=== PATIENT | female | born 1945 | race Caucasian/White ===

== ENCOUNTER 2017-08-23 15:46 | Inpatient (IN) | payer MEDICARE, MEDICAID ==
--- NOTE | 2017-08-23 16:33 | ED Physician Chart ---
ED Chief Complaint/HPI - Patient Information Date Seen:: 08/23/17 Time Seen:: 16:25 Chief Complaint:: increased agitation and refusing medications History of Present Illness:: Patient sent from her longterm facility for increased agitation and refusing medications. Patient states she fell backwards 40 years ago after which she was in a coma for 4 months. Historian:: Patient, EMS Review:: Nurse's Note Reviewed, Transfer documents Reviewed ED Review of Systems - Review of Systems General/Constitutional: No fever, No chills Skin: No skin lesions Head: No headache Eyes: No loss of vision ENT: No earache Neck: No neck pain Cardio Vascular: No chest pain, No palpitations Pulmonary: No SOB GI: No nausea, No vomiting G/U: No dysuria Musculoskeletal: No bone or joint pain Endocrine: No polyuria Psychiatric: Prior psych history Hematopoietic: No bruising Allergic/Immuno: No urticaria Neurological: No syncope ED Past Medical History - Past Medical History Past Medical History: HTN, DM, Seizures, Arthritis, Other (peripheral vascular disease; dysphagia; anemia; seizure disorder; hyperlipidemia; encephalopathy) Family History: Other (unavailable) Social History: Care Facility Surgical History: PEG/GTube, other (tracheotomy) Psychiatricy History: Other (encephalopathy) Medication: Reviewed Family Medical History - Family Member Mother History Unknown: Yes ED Physical Exam - Physical Examination General/Constitutional: Well-developed, well-nourished, Alert Other Gen/Cons comments:: Patient is confused. She does not know the year. Head: Atraumatic Eyes: Lids, conjuctiva normal, PERRL Skin: Nl inspection ENMT: External ears, nose nl, TM canals nl, Nasal exam nl, Lips, teeth, gums nl Neck: No nuchal rigidity Respiratory: Nl effort/Exclusion, Clear to Auscultation Cardio Vascular: RRR Other Cardio Vascular comments:: Heart sounds faint GI: No tenderness/rebounding/guarding, No organomegaly Extremities: Normal digits & nails Neuro/Psych: No focal deficits Misc: No paraspinal tenderness ED Labs/Radiology/EKG Results - Lab Results Results: Laboratory Results - last 24 hr 08/23/17 08/23/17 16:41 16:41 WBC 6.8 RBC 4.32 Hgb 13.5 Hct 39.6 L MCV 91.8 MCH 31.2 H MCHC Differential 34.0 RDW 13.3 Plt Count 216 MPV 9.7 Neutrophils % 52.8 Lymphocytes % 39.0 Monocytes % 5.8 Eosinophils % 1.6 Basophils % 0.8 Sodium 140 Potassium 4.3 Chloride 108 H Carbon Dioxide 24.6 Anion Gap 11.7 BUN 14 Creatinine 0.6 Est GFR ( Amer) TNP Est GFR (Non-Af Amer) TNP BUN/Creatinine Ratio 23.3 Glucose 161 H Calcium 9.6 Total Bilirubin 0.3 AST 9 L ALT 12 Alkaline Phosphatase 53 Total Protein 5.9 L Albumin 3.7 Globulin 2.2 Albumin/Globulin Ratio 1.7 Triglycerides 191 H Cholesterol 126 LDL Cholesterol Direct 67 L HDL Cholesterol 37 - EKG Interpretations Rate & Rhythm: normal sinus rhythm Brant: right axis deviation Comments:: Right bundle-branch block ED Septic Shock - . Is Septic Shock (SBP<90, OR Lactate>4 mmol\L) present?: No ED Reassessment (Disposition) - Reassessment Reassessment Condition:: Unchanged - Diagnosis Diagnosis:: Dementia with agitation - Patient Disposition Admitted to:: [facility] Admitting Medical Physician:: David Ellison Admitting Psych Physician:: Warren Quach
[2017-08-23 16:47] LABS: % BASOPHILS 0.8 % (0.0-2.0); % EOSINOPHILS 1.6 % (0.0-5.0); % MONOCYTES 5.8 % (2.0-10.0); % NEUTROPHILS 52.8 % (40.0-80.0); BASOPHILE ABSOLUTE 0.1 Th/cumm (0-0.2); EOSINOPHILE ABSOLUTE 0.1 Th/cmm (0.1-0.4); HEMATOCRIT 39.6 % (41.0-60); HEMOGLOBIN 13.5 gm/dL (12-16); LYMPHOCYTE ABSOLUTE 2.7 Th/cmm (1.5-3.0); MEAN CELL VOLUME 91.8 fl (81-100); MEAN CORPUSCULAR HEMOGLOBIN 31.2 pg (27.0-31.0); MEAN PLATELET VOLUME 9.7 fl; MONOCYTE ABSOLUTE 0.4 Th/cmm (0.3-1.0); NEUTROPHILE ABSOLUTE 3.5 Th/cmm (1.8-8.0); PLATELET COUNT 216 Th/cmm (150-400); RED BLOOD COUNT 4.32 Mil/cmm (3.80-5.20); RED CELL DISTRIBUTION WIDTH 13.3 % (11.5-20.0); WHITE BLOOD COUNT 6.8 Th/cmm (4.8-10.8)
[2017-08-23 17:05] LABS: ALB/GLOB RATIO 1.7 (1.0-1.8); ALBUMIN 3.7 gm/dL (3.7-5.3); ALKALINE PHOSPHATASE 53 U/L (34-104); ANION GAP 11.7 (7.0-16.0); BILIRUBIN,TOTAL 0.3 mg/dL (0.3-1.0); BUN - UREA NITROGEN 14 mg/dL (7-25); CALCIUM SERUM 9.6 mg/dL (8.6-10.3); CARBON DIOXIDE 24.6 mEq/L (21.0-31.0); CHLORIDE 108 mEq/L (98-107); CHOLESTEROL 126 mg/dL (<200); CREATININE - SERUM 0.6 mg/dL (0.6-1.2); GLUCOSE 161 mg/dL (70-105); HDL -HIGH DENSITY LIPOPROTEIN 37 mg/dL (23-92); POTASSIUM SERUM 4.3 mEq/L (3.5-5.1); SGOT 9 U/L (13-39); SGPT/ALT 12 U/L (7-52); SODIUM SERUM 140 mEq/L (136-145); TOTAL PROTEIN,SERUM 5.9 gm/dL (6.0-8.3); TRIGLYCERIDES 191 mg/dL (<150)
[2017-08-23 17:10] LABS: URINE MICROSCOPIC INDICATED? YES; URINE SOURCE CLEAN C
[2017-08-23 17:13] LABS: URINE BILIRUBIN NEGATIVE (NEGATIVE); URINE BLOOD NEGATIVE (NEGATIVE); URINE GLUCOSE (UA) NEGATIVE (NEGATIVE); URINE KETONE TRACE mg/dL (NEGATIVE); URINE LEUKOCYTE ESTERASE TRACE (NEGATIVE); URINE NITRATE NEGATIVE (NEGATIVE); URINE PROTEIN NEGATIVE (NEGATIVE); URINE UROBILINOGEN 0.2 E.U./dL (0.2 - 1.0)
[2017-08-23 17:17] LABS: URINE CLARITY HAZY (CLEAR); URINE COLOR YELLOW
[2017-08-23 17:20] LABS: URINE BACTERIA 1+ /hpf (NONE SEEN); URINE EPITHELIAL CELLS MANY /lpf (FEW)
[2017-08-23] MEDS: Levetiracetam 500 mg/5mL 5mL UDC GT SCH (20:50)
[2017-08-23] MEDS: Insulin Detemir 100 units/mL 10mL Vial SUBQ SCH (21:05)
--- NOTE | 2017-08-24 09:32 | Psychosocial Evaluation ---
DATE OF SERVICE: PATIENT'S AGE: 72. SEX: Female. PHYSICIAN: Warren Quach M.D., M.P.H. CHIEF COMPLAINT: Agitation and irritability. HISTORY OF PRESENT ILLNESS: The patient is a 72-year-old female with history of dementia. The patient has been agitated and confused and has not been able to follow directions. The patient also has been irritable and has been in angry mood. She also has been easily agitated with the staff and she also was aggressive with the staff when staff was trying to help her with her ADLs. She also has been refusing medications for no apparent reason. The patient also tried ____ at the staff. On the other hand, the patient seems to be depressed and sad affect. PAST PSYCHIATRIC HISTORY: The patient has history of dementia and the patient has been taking Namenda. PAST MEDICAL HISTORY: The patient has insulin-dependent diabetes mellitus and history of seizure disorder. The patient is taking Keppra and insulin and metformin. SOCIAL HISTORY: No known alcohol or street drug use. She has supportive son. ALLERGIES: No known allergies. MENTAL STATUS EXAM: The patient appears slightly older than her stated age. Anxious. Confused and forgetful. Thought processes are circumstantial with occasional flight of ideas. The patient denies any auditory or visual hallucinations, but seems to be preoccupied and responding to stimuli. The patient denies suicidal or homicidal ideations. The patient is alert, but seems to be confused to time, place, person and situation. Impaired immediate and recent memory, but intact remote memory and she did remember her date. Poor insight. Poor judgment. ASSESSMENT: PRIMARY DIAGNOSIS: Unspecified psychosis. SECONDARY DIAGNOSIS: Dementia, moderate to severe. TREATMENT PLAN: We will continue to monitor her behavior and her condition closely. Also, we will start a small dose of Seroquel before bedtime. Also, we will monitor her behavior closely. ESTIMATED LENGTH OF STAY: 5-7 days. THE PATIENT'S STRENGTHS AND WEAKNESSES: The patient's strength is not clear at this time. Weaknesses is ineffective coping and her agitation. AFTER DISCHARGE PLAN: Outpatient treatment and followup will continue as an outpatient. PSYCHIATRIC# [id number]
[2017-08-24] MEDS: Levetiracetam 500 mg/5mL 5mL UDC GT SCH ×3 (10:16→21:43)
--- NOTE | 2017-08-24 18:41 | History and Physical ---
History of Present Illness - HPI Chief Complaint: agitation HPI: This is a 72 yr old female senior living resident admitted to the [facility] due to agitation towards nursing staff Vital Signs: Last Vital Signs Temp 97.8 F 08/24/17 14:00 Pulse 97 08/24/17 17:39 Resp 20 08/24/17 14:00 BP 156/90 08/24/17 17:39 Pulse Ox 97 08/24/17 14:00 Past Medical History Other History: HTN, DM, Seizures, Arthritis, peripheral vascular disease, dysphagia anemia, seizure disorder; hyperlipidemia; encephalopathy Family Medical History - Family Member Mother History Unknown: Yes Social History Smoke: No Alcohol: None Drugs: None Lives: [facility] - Medications Home Medications: Home Medication Medication Instructions Recorded Type Acetaminophen [Tylenol 650 mg GT Q6HR PRN 08/23/17 History 650mg/20.3mL Suspension] Acetaminophen [Tylenol 650 mg GT Q6HR PRN 08/23/17 History 650mg/20.3mL Suspension] Atorvastatin Calcium [Lipitor] 10 mg GT HS 08/23/17 History Carvedilol [Coreg] 3.125 mg GT BID 08/23/17 History Docusate Sodium [Colace] 200 mg GT DAILY 08/23/17 History Insulin Glargine,Hum.rec.anlog 30 unit SUBQ HS 08/23/17 History [Lantus Solostar] Levetiracetam [Keppra] 1,000 mg GT TID 08/23/17 History Memantine [Namenda] 10 mg GT BID 08/23/17 History metFORMIN [Glucophage] 1,000 mg GT BID 08/23/17 History - Allergies Allergies/Adverse Reactions: Allergies Allergy/AdvReac Type Severity Reaction Status Date / Time Penicillins Allergy Verified 08/23/17 16:30 tetracycline Allergy Verified 08/23/17 16:30 Review of Systems - Review of Systems Constitutional: Report: No Significant Eyes: Report: No Significant ENT: Report: No Significant Respiratory: Report: No Significant Cardiovascular: Report: No Significant Gastrointestinal: Report: No Significant Genitourinary: Report: No Significant Musculoskeletal: Report: No Significant Skin: Report: No Significant Neurological: Report: No Significant Physical Exam - Physical Exam HEENT: Report: Ears Nose Throat within normal limits. Denies: Pale Conjunctiva Neck: Report: Within normal limits Cardiovascular Systems: Report: +s1/s2 noted Respiratory: Report: Breath Sounds are within normal limits Abdomen: Report: Non-tender to palpation Back: Report: Inspection of back is within normal limits. Extremities: Report: Non-tender to palpation. Skin: Report: Color of skin is within normal limits Neuro/Psych: Report: Mood affect is within normal limits - Lab Results All Lab Results last 24 hours: Laboratory Results - last 24 hr 08/24/17 16:36 POC Glucose 81 - Assessment Assessment: HTN, DM, Seizures, Arthritis, peripheral vascular disease; dysphagia; anemia; hyperlipidemia - Plan Plan: safety precautions seizure precautions continue current tx
[2017-08-24] MEDS: INSULIN ASPART SLIDING SCALE 100 UNITS/ML UNIT SUBQ SCH (21:44)
[2017-08-24] MEDS: Insulin Detemir 100 units/mL 10mL Vial SUBQ SCH (21:44)
[2017-08-25] MEDS: INSULIN ASPART SLIDING SCALE 100 UNITS/ML UNIT SUBQ SCH ×4 (06:44→23:50)
--- NOTE | 2017-08-25 07:52 | Progress Notes ---
DATE: 08/25/2017 SUBJECTIVE: The patient under the care of Dr. Quach, seen today, 08/25/2017. The patient with history of dementia, agitation, confusional episodes, irritable, angry mood. Needs help with ADLs. The patient is refusing to speak with me this morning, does not want to engage during memory exam. Staff noting continued and ongoing symptoms, remains irritable, impulsive, unpredictable, needing a lot of redirection, prompting, noted to be confused, preoccupied. MEDICATIONS: Reviewed including dosages and frequencies. ASSESSMENT: The patient remains symptomatic, demented, confused, impulsive. PLAN: We will continue to monitor and follow up. Recent dose adjustment of Seroquel was made. She is currently on Seroquel 12.5 mg at bedtime. [facility]# [id number]
[2017-08-25] MEDS: Levetiracetam 500 mg/5mL 5mL UDC GT SCH ×3 (10:14→21:30)
[2017-08-25] MEDS: Insulin Detemir 100 units/mL 10mL Vial SUBQ SCH (23:50)
--- NOTE | 2017-08-26 00:40 | Progress Notes ---
DATE: 08/25/2017 SUBJECTIVE: The patient was seen in her room lying on the bed. The patient is asleep, but easily arousable. The patient is a poor historian due to medical condition. Otherwise, the patient appears to be comfortable in no acute distress. OBJECTIVE: VITAL SIGNS: Temperature of 98.6, heart rate of 89, blood pressure of 134/78, respirations of 18, 96% on room air. HEENT: Head is atraumatic and normocephalic. Eyes, bilateral conjunctivae are clear. Bilateral pupils are equally round and reactive. NECK: Supple. No JVD. CARDIOVASCULAR: S1 and S2, without murmur. PULMONARY: Clear to auscultation. GASTROINTESTINAL: Soft and nontender without guarding. Positive bowel sounds. MUSCULOSKELETAL: No clubbing, no cyanosis noted. ASSESSMENT: 1. Dementia. 2. Diabetes mellitus. 3. Seizure disorder. 4. Osteoarthritis. 5. Peripheral vascular disease. 6. Anemia. 7. Hyperlipidemia. PLAN: We will continue to keep the patient inpatient in Psychiatric Unit. We will follow up with a psychiatrist to monitor the patient's condition and behavior. Treatment plans were discussed with the patient's nurse. Treatment plans were discussed with Dr. Ellison. JOB# [id number]
[2017-08-26] MEDS: INSULIN ASPART SLIDING SCALE 100 UNITS/ML UNIT SUBQ SCH ×3 (06:34→21:37)
--- NOTE | 2017-08-26 08:14 | Progress Notes ---
DATE: 08/26/2017 SUBJECTIVE: The patient is seen on 08/26/2017, agitated, confusion, irritable, angry mood, aggressive towards staff, refusing medications at long term. On [id number], the patient is essentially refusing to speak with me, seemingly confused, awake and alert, but noted to still be somewhat irritable, angry at times, needing help with ADLs, continued confusion and disorientation, impulsive and unpredictable. MEDICATIONS: Reviewed including doses and frequencies. ASSESSMENT: The patient remains symptomatic, still confused, impulsive. PLAN: We will continue to monitor and follow up. The patient does seem to be somewhat calmer with current dose of medications, no side effects noted, no over sedation, no EPS. [facility]# [id number]
--- NOTE | 2017-08-26 09:13 | General Progress Note ---
Subjective - Review of Systems Events since last encounter: patient still confused Objective - Results Result Diagrams: 08/23/17 16:41 08/23/17 16:41 Recent Labs: Laboratory Last Values WBC 6.8 Th/cmm (4.8-10.8) 08/23/17 16:41 RBC 4.32 Mil/cmm (3.80-5.20) 08/23/17 16:41 Hgb 13.5 gm/dL (12-16) 08/23/17 16:41 Hct 39.6 % (41.0-60) L 08/23/17 16:41 MCV 91.8 fl (81-100) 08/23/17 16:41 MCH 31.2 pg (27.0-31.0) H 08/23/17 16:41 MCHC Differential 34.0 pg (28.0-36.0) 08/23/17 16:41 RDW 13.3 % (11.5-20.0) 08/23/17 16:41 Plt Count 216 Th/cmm (150-400) 08/23/17 16:41 MPV 9.7 fl 08/23/17 16:41 Neutrophils % 52.8 % (40.0-80.0) 08/23/17 16:41 Lymphocytes % 39.0 % (20.0-50.0) 08/23/17 16:41 Monocytes % 5.8 % (2.0-10.0) 08/23/17 16:41 Eosinophils % 1.6 % (0.0-5.0) 08/23/17 16:41 Basophils % 0.8 % (0.0-2.0) 08/23/17 16:41 Sodium 140 mEq/L (136-145) 08/23/17 16:41 Potassium 4.3 mEq/L (3.5-5.1) 08/23/17 16:41 Chloride 108 mEq/L (98-107) H 08/23/17 16:41 Carbon Dioxide 24.6 mEq/L (21.0-31.0) 08/23/17 16:41 Anion Gap 11.7 (7.0-16.0) 08/23/17 16:41 BUN 14 mg/dL (7-25) 08/23/17 16:41 Creatinine 0.6 mg/dL (0.6-1.2) 08/23/17 16:41 Est GFR ( Amer) TNP 08/23/17 16:41 Est GFR (Non-Af Amer) TNP 08/23/17 16:41 BUN/Creatinine Ratio 23.3 08/23/17 16:41 Glucose 161 mg/dL (70-105) H 08/23/17 16:41 POC Glucose 101 MG/DL (70 - 105) 08/26/17 06:12 Calcium 9.6 mg/dL (8.6-10.3) 08/23/17 16:41 Total Bilirubin 0.3 mg/dL (0.3-1.0) 08/23/17 16:41 AST 9 U/L (13-39) L 08/23/17 16:41 ALT 12 U/L (7-52) 08/23/17 16:41 Alkaline Phosphatase 53 U/L (34-104) 08/23/17 16:41 Total Protein 5.9 gm/dL (6.0-8.3) L 08/23/17 16:41 Albumin 3.7 gm/dL (3.7-5.3) 08/23/17 16:41 Globulin 2.2 gm/dL 08/23/17 16:41 Albumin/Globulin Ratio 1.7 (1.0-1.8) 08/23/17 16:41 Triglycerides 191 mg/dL (<150) H 08/23/17 16:41 Cholesterol 126 mg/dL (<200) 08/23/17 16:41 LDL Cholesterol Direct 67 mg/dL (75-193) L 08/23/17 16:41 HDL Cholesterol 37 mg/dL (23-92) 08/23/17 16:41 TSH 0.25 uIU/ml (0.34-5.60) L 08/23/17 16:41 Urine Source CLEAN C 08/23/17 17:00 Urine Color YELLOW 08/23/17 17:00 Urine Clarity HAZY (CLEAR) 08/23/17 17:00 Urine pH 6.0 (4.6 - 8.0) 08/23/17 17:00 Ur Specific [place] 1.025 (1.005-1.030) 08/23/17 17:00 Urine Protein NEGATIVE mg/dL (NEGATIVE) 08/23/17 17:00 Urine Glucose (UA) NEGATIVE mg/dL (NEGATIVE) 08/23/17 17:00 Urine Ketones TRACE mg/dL (NEGATIVE) 08/23/17 17:00 Urine Blood NEGATIVE (NEGATIVE) 08/23/17 17:00 Urine Nitrate NEGATIVE (NEGATIVE) 08/23/17 17:00 Urine Bilirubin NEGATIVE (NEGATIVE) 08/23/17 17:00 Urine Urobilinogen 0.2 E.U./dL (0.2 - 1.0) 08/23/17 17:00 Ur Leukocyte Esterase TRACE (NEGATIVE) H 08/23/17 17:00 Urine RBC 2-5 /hpf (0-5) 08/23/17 17:00 Urine WBC 6-10 /hpf (0-5) H 08/23/17 17:00 Ur Epithelial Cells MANY /lpf (FEW) 08/23/17 17:00 Urine Bacteria 1+ /hpf (NONE SEEN) H 08/23/17 17:00 RPR NONREACTIVE (NONREACTIVE) 08/23/17 16:41 - Physical Exam Vitals and I&O: Vital Signs Temp 98.2 F 08/26/17 06:25 Pulse 79 08/26/17 08:51 Resp 20 08/26/17 06:25 BP 136/76 08/26/17 08:51 Pulse Ox 97 08/26/17 06:25 Intake & Output 08/25/17 08/26/17 08/26/17 18:59 06:59 18:59 Intake Total 300 360 Balance 300 360 Intake: Oral 300 360 Other: # Voids 2 1 Active Medications: Current Medications Acetaminophen (Tylenol 650mg/20.3ml Suspension) 650 mg GT Q6HR PRN PRN Reason: Pain (Mild) Stop: 10/22/17 18:49 Acetaminophen (Tylenol 650mg/20.3ml Suspension) 650 mg GT Q6HR PRN PRN Reason: Fever > 101 Stop: 10/22/17 18:49 Carvedilol (Coreg) 3.125 mg GT BID [facility] Stop: 10/23/17 08:59 Last Admin: 08/26/17 08:51 Dose: 3.125 mg Docusate Sodium (Colace) 200 mg PO DAILY [facility] Stop: 10/23/17 08:59 Last Admin: 08/26/17 08:52 Dose: 200 mg Insulin Aspart (Novolog Insulin Sliding Scale) 100 units SUBQ ACHS BELLA PRN Reason: Protocol Stop: 10/23/17 21:08 Last Admin: 08/26/17 06:34 Dose: Not Given Insulin Detemir (Levemir Insulin) 30 units SUBQ HS [facility] Stop: 10/22/17 20:59 Last Admin: 08/25/17 23:50 Dose: Not Given Levetiracetam (Keppra) 1,000 mg GT TID [facility] Stop: 10/22/17 20:59 Last Admin: 08/25/17 21:30 Dose: 1,000 mg Memantine (Namenda) 10 mg GT BID [facility] Stop: 10/23/17 08:59 Last Admin: 08/26/17 08:52 Dose: 10 mg Metformin HCl (Glucophage) 1,000 mg GT BID [facility] Stop: 10/23/17 08:59 Last Admin: 08/26/17 08:51 Dose: 1,000 mg Quetiapine Fumarate (Seroquel) 12.5 mg PO HS [facility]LLA PRN Reason: Protocol Stop: 10/23/17 20:59 Last Admin: 08/25/17 21:30 Dose: 12.5 mg Simvastatin (Zocor) 10 mg GT HS BELLA PRN Reason: Protocol Stop: 10/22/17 20:59 Last Admin: 08/24/17 21:43 Dose: Not Given General: No acute distress HEENT: Atraumatic Neck: Supple Assessment/Plan - Plan Plan: cpm
[2017-08-26] MEDS: Levetiracetam 500 mg/5mL 5mL UDC GT SCH ×2 (10:24→14:37)
[2017-08-26] MEDS: Insulin Detemir 100 units/mL 10mL Vial SUBQ SCH (21:36)
[2017-08-27] MEDS: Levetiracetam 500 mg/5mL 5mL UDC GT SCH ×4 (00:21→20:45)
[2017-08-27] MEDS: INSULIN ASPART SLIDING SCALE 100 UNITS/ML UNIT SUBQ SCH ×4 (06:56→20:43)
--- NOTE | 2017-08-27 10:48 | General Progress Note ---
Subjective - Review of Systems Events since last encounter: continues to be confused Objective - Results Result Diagrams: 08/23/17 16:41 08/23/17 16:41 Recent Labs: Laboratory Last Values WBC 6.8 Th/cmm (4.8-10.8) 08/23/17 16:41 RBC 4.32 Mil/cmm (3.80-5.20) 08/23/17 16:41 Hgb 13.5 gm/dL (12-16) 08/23/17 16:41 Hct 39.6 % (41.0-60) L 08/23/17 16:41 MCV 91.8 fl (81-100) 08/23/17 16:41 MCH 31.2 pg (27.0-31.0) H 08/23/17 16:41 MCHC Differential 34.0 pg (28.0-36.0) 08/23/17 16:41 RDW 13.3 % (11.5-20.0) 08/23/17 16:41 Plt Count 216 Th/cmm (150-400) 08/23/17 16:41 MPV 9.7 fl 08/23/17 16:41 Neutrophils % 52.8 % (40.0-80.0) 08/23/17 16:41 Lymphocytes % 39.0 % (20.0-50.0) 08/23/17 16:41 Monocytes % 5.8 % (2.0-10.0) 08/23/17 16:41 Eosinophils % 1.6 % (0.0-5.0) 08/23/17 16:41 Basophils % 0.8 % (0.0-2.0) 08/23/17 16:41 Sodium 140 mEq/L (136-145) 08/23/17 16:41 Potassium 4.3 mEq/L (3.5-5.1) 08/23/17 16:41 Chloride 108 mEq/L (98-107) H 08/23/17 16:41 Carbon Dioxide 24.6 mEq/L (21.0-31.0) 08/23/17 16:41 Anion Gap 11.7 (7.0-16.0) 08/23/17 16:41 BUN 14 mg/dL (7-25) 08/23/17 16:41 Creatinine 0.6 mg/dL (0.6-1.2) 08/23/17 16:41 Est GFR ( Amer) TNP 08/23/17 16:41 Est GFR (Non-Af Amer) TNP 08/23/17 16:41 BUN/Creatinine Ratio 23.3 08/23/17 16:41 Glucose 161 mg/dL (70-105) H 08/23/17 16:41 POC Glucose 123 MG/DL (70 - 105) H 08/27/17 06:46 Calcium 9.6 mg/dL (8.6-10.3) 08/23/17 16:41 Total Bilirubin 0.3 mg/dL (0.3-1.0) 08/23/17 16:41 AST 9 U/L (13-39) L 08/23/17 16:41 ALT 12 U/L (7-52) 08/23/17 16:41 Alkaline Phosphatase 53 U/L (34-104) 08/23/17 16:41 Total Protein 5.9 gm/dL (6.0-8.3) L 08/23/17 16:41 Albumin 3.7 gm/dL (3.7-5.3) 08/23/17 16:41 Globulin 2.2 gm/dL 08/23/17 16:41 Albumin/Globulin Ratio 1.7 (1.0-1.8) 08/23/17 16:41 Triglycerides 191 mg/dL (<150) H 08/23/17 16:41 Cholesterol 126 mg/dL (<200) 08/23/17 16:41 LDL Cholesterol Direct 67 mg/dL (75-193) L 08/23/17 16:41 HDL Cholesterol 37 mg/dL (23-92) 08/23/17 16:41 TSH 0.25 uIU/ml (0.34-5.60) L 08/23/17 16:41 Urine Source CLEAN C 08/23/17 17:00 Urine Color YELLOW 08/23/17 17:00 Urine Clarity HAZY (CLEAR) 08/23/17 17:00 Urine pH 6.0 (4.6 - 8.0) 08/23/17 17:00 Ur Specific [place] 1.025 (1.005-1.030) 08/23/17 17:00 Urine Protein NEGATIVE mg/dL (NEGATIVE) 08/23/17 17:00 Urine Glucose (UA) NEGATIVE mg/dL (NEGATIVE) 08/23/17 17:00 Urine Ketones TRACE mg/dL (NEGATIVE) 08/23/17 17:00 Urine Blood NEGATIVE (NEGATIVE) 08/23/17 17:00 Urine Nitrate NEGATIVE (NEGATIVE) 08/23/17 17:00 Urine Bilirubin NEGATIVE (NEGATIVE) 08/23/17 17:00 Urine Urobilinogen 0.2 E.U./dL (0.2 - 1.0) 08/23/17 17:00 Ur Leukocyte Esterase TRACE (NEGATIVE) H 08/23/17 17:00 Urine RBC 2-5 /hpf (0-5) 08/23/17 17:00 Urine WBC 6-10 /hpf (0-5) H 08/23/17 17:00 Ur Epithelial Cells MANY /lpf (FEW) 08/23/17 17:00 Urine Bacteria 1+ /hpf (NONE SEEN) H 08/23/17 17:00 RPR NONREACTIVE (NONREACTIVE) 08/23/17 16:41 - Physical Exam Vitals and I&O: Vital Signs Temp 98.2 F 08/26/17 20:55 Pulse 75 08/27/17 09:59 Resp 20 08/26/17 20:55 BP 140/65 08/27/17 09:59 Pulse Ox 96 08/26/17 20:55 Intake & Output 08/26/17 08/27/17 08/27/17 18:59 06:59 18:59 Intake Total 750 240 Balance 750 240 Intake: Oral 750 240 Other: # Voids 4 1 # Bowel Movements 1 Active Medications: Current Medications Acetaminophen (Tylenol 650mg/20.3ml Suspension) 650 mg GT Q6HR PRN PRN Reason: Pain (Mild) Stop: 10/22/17 18:49 Acetaminophen (Tylenol 650mg/20.3ml Suspension) 650 mg GT Q6HR PRN PRN Reason: Fever > 101 Stop: 10/22/17 18:49 Carvedilol (Coreg) 3.125 mg GT BID [facility] Stop: 10/23/17 08:59 Last Admin: 08/27/17 09:59 Dose: 3.125 mg Docusate Sodium (Colace) 200 mg PO DAILY [facility] Stop: 10/23/17 08:59 Last Admin: 08/27/17 09:57 Dose: 200 mg Insulin Aspart (Novolog Insulin Sliding Scale) 100 units SUBQ ACHS [facility] PRN Reason: Protocol Stop: 10/23/17 21:08 Last Admin: 08/27/17 06:56 Dose: Not Given Insulin Detemir (Levemir Insulin) 30 units SUBQ HS [facility] Stop: 10/22/17 20:59 Last Admin: 08/26/17 21:36 Dose: Not Given Levetiracetam (Keppra) 1,000 mg GT TID [facility] Stop: 10/22/17 20:59 Last Admin: 08/27/17 09:57 Dose: 1,000 mg Memantine (Namenda) 10 mg GT BID [facility] Stop: 10/23/17 08:59 Last Admin: 08/27/17 09:57 Dose: 10 mg Metformin HCl (Glucophage) 1,000 mg GT BID [facility] Stop: 10/23/17 08:59 Last Admin: 08/27/17 10:31 Dose: 1,000 mg Quetiapine Fumarate (Seroquel) 12.5 mg PO HS [facility] PRN Reason: Protocol Stop: 10/23/17 20:59 Last Admin: 08/26/17 21:36 Dose: 12.5 mg Simvastatin (Zocor) 10 mg GT HS [facility] PRN Reason: Protocol Stop: 10/22/17 20:59 Last Admin: 08/26/17 21:36 Dose: 10 mg General: No acute distress HEENT: Atraumatic Neck: Supple Assessment/Plan - Plan Plan: cpm
--- NOTE | 2017-08-27 15:58 | Progress Notes ---
DATE: SUBJECTIVE: The patient was seen and evaluated. The patient's chart reviewed. Overnight, nursing staff reported the patient has mostly been isolated. Overnight, she becomes easily irritable, easily agitated. She initially came in here after becoming aggressive towards the staff in the skilled nursing and had been refusing medications. Today on [id number] evaluation, the patient reports that she is not the person who we say she is, easily irritable, easily agitated, refusing to talk. MENTAL STATUS EXAMINATION: Disorganized, disheveled, poor impulse control and delusional. ASSESSMENT AND PLAN: The patient is still disorganized, disheveled, has been refusing medications, unable to engage in linear conversation. We will continue with primary psychiatrist's treatment plan and goals, which include Keppra 1000 mg t.i.d., memantine at 10 mg b.i.d., Seroquel at 12.5 at bedtime. We will continue observing and monitoring and titrate medications as tolerated to minimize the risk of any increased risk of side effects and oversedation. [facility]# [id number]
[2017-08-27] MEDS: Insulin Detemir 100 units/mL 10mL Vial SUBQ SCH (20:43)
[2017-08-28] MEDS: INSULIN ASPART SLIDING SCALE 100 UNITS/ML UNIT SUBQ SCH ×4 (06:31→21:32)
--- NOTE | 2017-08-28 08:18 | Progress Notes ---
DATE: PSYCHIATRIC PROGRESS NOTE Chart reviewed and patient interviewed. Also discussed the patient's condition with the staff and reviewed the records and labs. The patient remains confused and agitated. The patient also is still selectively mute and she is still paranoid and suspicious. The patient also still has episodes of yelling and screaming. She also is still forgetful and unable to follow directions easily. Otherwise, the patient is compliant with taking her medications with no side effects of medications. ASSESSMENT: The patient is still agitated and psychotic. TREATMENT PLAN: We will continue monitoring her behavior and her condition closely. Also, we will increase Seroquel to 25 mg at bedtime and will continue to followup closely. [facility]# [id number]
[2017-08-28] MEDS: Levetiracetam 500 mg/5mL 5mL UDC GT SCH ×3 (11:02→21:47)
--- NOTE | 2017-08-28 12:17 | Internal Medicine Prog Note ---
Internal Medicine Subjective - Subjective Service Date: 08/28/17 Patient seen and examined:: with staff Patient is:: awake Per staff patient has:: tolerating meds Internal Medicine Objective - Results Result Diagrams: 08/23/17 16:41 08/23/17 16:41 Recent Labs: Laboratory Last Values WBC 6.8 Th/cmm (4.8-10.8) 08/23/17 16:41 RBC 4.32 Mil/cmm (3.80-5.20) 08/23/17 16:41 Hgb 13.5 gm/dL (12-16) 08/23/17 16:41 Hct 39.6 % (41.0-60) L 08/23/17 16:41 MCV 91.8 fl (81-100) 08/23/17 16:41 MCH 31.2 pg (27.0-31.0) H 08/23/17 16:41 MCHC Differential 34.0 pg (28.0-36.0) 08/23/17 16:41 RDW 13.3 % (11.5-20.0) 08/23/17 16:41 Plt Count 216 Th/cmm (150-400) 08/23/17 16:41 MPV 9.7 fl 08/23/17 16:41 Neutrophils % 52.8 % (40.0-80.0) 08/23/17 16:41 Lymphocytes % 39.0 % (20.0-50.0) 08/23/17 16:41 Monocytes % 5.8 % (2.0-10.0) 08/23/17 16:41 Eosinophils % 1.6 % (0.0-5.0) 08/23/17 16:41 Basophils % 0.8 % (0.0-2.0) 08/23/17 16:41 Sodium 140 mEq/L (136-145) 08/23/17 16:41 Potassium 4.3 mEq/L (3.5-5.1) 08/23/17 16:41 Chloride 108 mEq/L (98-107) H 08/23/17 16:41 Carbon Dioxide 24.6 mEq/L (21.0-31.0) 08/23/17 16:41 Anion Gap 11.7 (7.0-16.0) 08/23/17 16:41 BUN 14 mg/dL (7-25) 08/23/17 16:41 Creatinine 0.6 mg/dL (0.6-1.2) 08/23/17 16:41 Est GFR ( Amer) TNP 08/23/17 16:41 Est GFR (Non-Af Amer) TNP 08/23/17 16:41 BUN/Creatinine Ratio 23.3 08/23/17 16:41 Glucose 161 mg/dL (70-105) H 08/23/17 16:41 POC Glucose 231 MG/DL (70 - 105) H 08/27/17 19:57 Calcium 9.6 mg/dL (8.6-10.3) 08/23/17 16:41 Total Bilirubin 0.3 mg/dL (0.3-1.0) 08/23/17 16:41 AST 9 U/L (13-39) L 08/23/17 16:41 ALT 12 U/L (7-52) 08/23/17 16:41 Alkaline Phosphatase 53 U/L (34-104) 08/23/17 16:41 Total Protein 5.9 gm/dL (6.0-8.3) L 08/23/17 16:41 Albumin 3.7 gm/dL (3.7-5.3) 08/23/17 16:41 Globulin 2.2 gm/dL 08/23/17 16:41 Albumin/Globulin Ratio 1.7 (1.0-1.8) 08/23/17 16:41 Triglycerides 191 mg/dL (<150) H 08/23/17 16:41 Cholesterol 126 mg/dL (<200) 08/23/17 16:41 LDL Cholesterol Direct 67 mg/dL (75-193) L 08/23/17 16:41 HDL Cholesterol 37 mg/dL (23-92) 08/23/17 16:41 TSH 0.25 uIU/ml (0.34-5.60) L 08/23/17 16:41 Urine Source CLEAN C 08/23/17 17:00 Urine Color YELLOW 08/23/17 17:00 Urine Clarity HAZY (CLEAR) 08/23/17 17:00 Urine pH 6.0 (4.6 - 8.0) 08/23/17 17:00 Ur Specific [place] 1.025 (1.005-1.030) 08/23/17 17:00 Urine Protein NEGATIVE mg/dL (NEGATIVE) 08/23/17 17:00 Urine Glucose (UA) NEGATIVE mg/dL (NEGATIVE) 08/23/17 17:00 Urine Ketones TRACE mg/dL (NEGATIVE) 08/23/17 17:00 Urine Blood NEGATIVE (NEGATIVE) 08/23/17 17:00 Urine Nitrate NEGATIVE (NEGATIVE) 08/23/17 17:00 Urine Bilirubin NEGATIVE (NEGATIVE) 08/23/17 17:00 Urine Urobilinogen 0.2 E.U./dL (0.2 - 1.0) 08/23/17 17:00 Ur Leukocyte Esterase TRACE (NEGATIVE) H 08/23/17 17:00 Urine RBC 2-5 /hpf (0-5) 08/23/17 17:00 Urine WBC 6-10 /hpf (0-5) H 08/23/17 17:00 Ur Epithelial Cells MANY /lpf (FEW) 08/23/17 17:00 Urine Bacteria 1+ /hpf (NONE SEEN) H 08/23/17 17:00 RPR NONREACTIVE (NONREACTIVE) 08/23/17 16:41 - Physical Exam Vitals and I&O: Vital Signs Temp 97.7 F 08/28/17 06:03 Pulse 78 08/28/17 11:01 Resp 19 08/28/17 06:03 BP 146/81 08/28/17 11:01 Pulse Ox 96 08/28/17 06:03 Intake & Output 08/27/17 08/28/17 08/28/17 18:59 06:59 18:59 Intake Total 120 Balance 120 Intake: Oral 120 Other: # Voids 1 # Bowel Movements 1 Active Medications: Current Medications Acetaminophen (Tylenol 650mg/20.3ml Suspension) 650 mg GT Q6HR PRN PRN Reason: Pain (Mild) Stop: 10/22/17 18:49 Acetaminophen (Tylenol 650mg/20.3ml Suspension) 650 mg GT Q6HR PRN PRN Reason: Fever > 101 Stop: 10/22/17 18:49 Carvedilol (Coreg) 3.125 mg GT BID [facility] Stop: 10/23/17 08:59 Last Admin: 08/28/17 11:01 Dose: 3.125 mg Docusate Sodium (Colace) 200 mg PO DAILY [facility] Stop: 10/23/17 08:59 Last Admin: 08/28/17 11:02 Dose: 200 mg Insulin Aspart (Novolog Insulin Sliding Scale) 100 units SUBQ ACHS [facility] PRN Reason: Protocol Stop: 10/23/17 21:08 Last Admin: 08/28/17 11:00 Dose: Not Given Insulin Detemir (Levemir Insulin) 30 units SUBQ HS [facility] Stop: 10/22/17 20:59 Last Admin: 08/27/17 20:43 Dose: 30 unit Levetiracetam (Keppra) 1,000 mg GT TID [facility] Stop: 10/22/17 20:59 Last Admin: 08/28/17 11:02 Dose: 1,000 mg Memantine (Namenda) 10 mg GT BID [facility] Stop: 10/23/17 08:59 Last Admin: 08/28/17 11:02 Dose: 10 mg Metformin HCl (Glucophage) 1,000 mg GT BID [facility] Stop: 10/23/17 08:59 Last Admin: 08/28/17 11:02 Dose: 1,000 mg Quetiapine Fumarate (Seroquel) 25 mg PO HS [facility] PRN Reason: Protocol Stop: 10/23/17 20:59 Simvastatin (Zocor) 10 mg GT HS [facility] PRN Reason: Protocol Stop: 10/22/17 20:59 Last Admin: 08/27/17 20:49 Dose: 10 mg General: alert HEENT: NC/AT, PERRLA Lungs: CTAB Cardiovascular: RRR, Normal S1, Normal S2, without murmur Abdomen: soft, non-tender, non-distended, positive bowel sound Internal Medicine Assmt/Plan - Assessment Assessment: HTN, DM, Seizures, Arthritis, peripheral vascular disease; dysphagia; anemia; hyperlipidemia - Plan Plan: safety precautions seizure precautions continue current tx
[2017-08-28] MEDS: Insulin Detemir 100 units/mL 10mL Vial SUBQ SCH (21:41)
[2017-08-29] MEDS: INSULIN ASPART SLIDING SCALE 100 UNITS/ML UNIT SUBQ SCH ×2 (06:34→12:32)
--- NOTE | 2017-08-29 07:11 | Discharge Summary ---
DATE OF DISCHARGE: 08/29/2017 THE PATIENT'S AGE: 72. SEX: Female. PHYSICIAN: Warren Quach M.D., M.P.H. FINAL DIAGNOSIS/PRIMARY DIAGNOSIS: Unspecified psychosis. SECONDARY DIAGNOSIS: Dementia, moderate to severe, with psychotic features. REASON FOR HOSPITALIZATION: The patient was admitted to the hospital because of increased agitation and irritability and difficulty following the directions. HOSPITAL COURSE: The patient continued to be agitated and in irritable mood. The patient also wanted to be left alone. She also was interacting minimally with peers and with others. The patient also was not suicidal or homicidal, and easier to follow directions. The patient was discharged from the hospital. Physical exam of the patient showed no major medical problems. Blood workup was basically normal except the blood sugar upon admission was 170 on 08/26/2017 and was down to 68 on 08/28/2017. AFTER DISCHARGE PLANS: The patient discharged from the hospital and went back to [facility] with plan to follow her up there. EXPECTED OUTCOME AFTER DISCHARGE: Fair if the patient continues to follow up with medications and continued to take her medications and if she continued to work on her poor impulse control. [facility]# [id number]
[2017-08-29] MEDS: Levetiracetam 500 mg/5mL 5mL UDC GT SCH ×2 (10:39→14:49)
--- NOTE | 2017-08-29 15:03 | General Progress Note ---
Subjective - Review of Systems Events since last encounter: patient awake no distress Objective - Results Result Diagrams: 08/23/17 16:41 08/23/17 16:41 Recent Labs: Laboratory Last Values WBC 6.8 Th/cmm (4.8-10.8) 08/23/17 16:41 RBC 4.32 Mil/cmm (3.80-5.20) 08/23/17 16:41 Hgb 13.5 gm/dL (12-16) 08/23/17 16:41 Hct 39.6 % (41.0-60) L 08/23/17 16:41 MCV 91.8 fl (81-100) 08/23/17 16:41 MCH 31.2 pg (27.0-31.0) H 08/23/17 16:41 MCHC Differential 34.0 pg (28.0-36.0) 08/23/17 16:41 RDW 13.3 % (11.5-20.0) 08/23/17 16:41 Plt Count 216 Th/cmm (150-400) 08/23/17 16:41 MPV 9.7 fl 08/23/17 16:41 Neutrophils % 52.8 % (40.0-80.0) 08/23/17 16:41 Lymphocytes % 39.0 % (20.0-50.0) 08/23/17 16:41 Monocytes % 5.8 % (2.0-10.0) 08/23/17 16:41 Eosinophils % 1.6 % (0.0-5.0) 08/23/17 16:41 Basophils % 0.8 % (0.0-2.0) 08/23/17 16:41 Sodium 140 mEq/L (136-145) 08/23/17 16:41 Potassium 4.3 mEq/L (3.5-5.1) 08/23/17 16:41 Chloride 108 mEq/L (98-107) H 08/23/17 16:41 Carbon Dioxide 24.6 mEq/L (21.0-31.0) 08/23/17 16:41 Anion Gap 11.7 (7.0-16.0) 08/23/17 16:41 BUN 14 mg/dL (7-25) 08/23/17 16:41 Creatinine 0.6 mg/dL (0.6-1.2) 08/23/17 16:41 Est GFR ( Amer) TNP 08/23/17 16:41 Est GFR (Non-Af Amer) TNP 08/23/17 16:41 BUN/Creatinine Ratio 23.3 08/23/17 16:41 Glucose 161 mg/dL (70-105) H 08/23/17 16:41 POC Glucose 113 MG/DL (70 - 105) H 08/29/17 06:07 Calcium 9.6 mg/dL (8.6-10.3) 08/23/17 16:41 Total Bilirubin 0.3 mg/dL (0.3-1.0) 08/23/17 16:41 AST 9 U/L (13-39) L 08/23/17 16:41 ALT 12 U/L (7-52) 08/23/17 16:41 Alkaline Phosphatase 53 U/L (34-104) 08/23/17 16:41 Total Protein 5.9 gm/dL (6.0-8.3) L 08/23/17 16:41 Albumin 3.7 gm/dL (3.7-5.3) 08/23/17 16:41 Globulin 2.2 gm/dL 08/23/17 16:41 Albumin/Globulin Ratio 1.7 (1.0-1.8) 08/23/17 16:41 Triglycerides 191 mg/dL (<150) H 08/23/17 16:41 Cholesterol 126 mg/dL (<200) 08/23/17 16:41 LDL Cholesterol Direct 67 mg/dL (75-193) L 08/23/17 16:41 HDL Cholesterol 37 mg/dL (23-92) 08/23/17 16:41 TSH 0.25 uIU/ml (0.34-5.60) L 08/23/17 16:41 Urine Source CLEAN C 08/23/17 17:00 Urine Color YELLOW 08/23/17 17:00 Urine Clarity HAZY (CLEAR) 08/23/17 17:00 Urine pH 6.0 (4.6 - 8.0) 08/23/17 17:00 Ur Specific [place] 1.025 (1.005-1.030) 08/23/17 17:00 Urine Protein NEGATIVE mg/dL (NEGATIVE) 08/23/17 17:00 Urine Glucose (UA) NEGATIVE mg/dL (NEGATIVE) 08/23/17 17:00 Urine Ketones TRACE mg/dL (NEGATIVE) 08/23/17 17:00 Urine Blood NEGATIVE (NEGATIVE) 08/23/17 17:00 Urine Nitrate NEGATIVE (NEGATIVE) 08/23/17 17:00 Urine Bilirubin NEGATIVE (NEGATIVE) 08/23/17 17:00 Urine Urobilinogen 0.2 E.U./dL (0.2 - 1.0) 08/23/17 17:00 Ur Leukocyte Esterase TRACE (NEGATIVE) H 08/23/17 17:00 Urine RBC 2-5 /hpf (0-5) 08/23/17 17:00 Urine WBC 6-10 /hpf (0-5) H 08/23/17 17:00 Ur Epithelial Cells MANY /lpf (FEW) 08/23/17 17:00 Urine Bacteria 1+ /hpf (NONE SEEN) H 08/23/17 17:00 RPR NONREACTIVE (NONREACTIVE) 08/23/17 16:41 - Physical Exam Vitals and I&O: Vital Signs Temp 98.7 F 08/29/17 06:07 Pulse 75 08/29/17 06:07 Resp 20 08/29/17 06:07 BP 135/65 08/29/17 06:07 Pulse Ox 95 08/29/17 06:07 Intake & Output 08/28/17 08/29/17 08/29/17 18:59 06:59 18:59 Intake Total 680 0 Balance 680 0 Intake: Oral 680 0 Other: # Voids 3 2 # Bowel Movements 0 1 Active Medications: Current Medications Acetaminophen (Tylenol 650mg/20.3ml Suspension) 650 mg GT Q6HR PRN PRN Reason: Pain (Mild) Stop: 10/22/17 18:49 Acetaminophen (Tylenol 650mg/20.3ml Suspension) 650 mg GT Q6HR PRN PRN Reason: Fever > 101 Stop: 10/22/17 18:49 Carvedilol (Coreg) 3.125 mg GT BID [facility] Stop: 10/23/17 08:59 Last Admin: 08/29/17 10:40 Dose: Not Given Docusate Sodium (Colace) 200 mg PO DAILY [facility] Stop: 10/23/17 08:59 Last Admin: 08/29/17 10:40 Dose: Not Given Insulin Aspart (Novolog Insulin Sliding Scale) 100 units SUBQ ACHS [facility] PRN Reason: Protocol Stop: 10/23/17 21:08 Last Admin: 08/29/17 12:32 Dose: Not Given Insulin Detemir (Levemir Insulin) 30 units SUBQ HS [facility] Stop: 10/22/17 20:59 Last Admin: 08/28/17 21:41 Dose: Not Given Levetiracetam (Keppra) 1,000 mg GT TID [facility] Stop: 10/22/17 20:59 Last Admin: 08/29/17 14:49 Dose: Not Given Memantine (Namenda) 10 mg GT BID [facility] Stop: 10/23/17 08:59 Last Admin: 08/29/17 10:40 Dose: Not Given Metformin HCl (Glucophage) 1,000 mg GT BID [facility] Stop: 10/23/17 08:59 Last Admin: 08/29/17 10:40 Dose: Not Given Quetiapine Fumarate (Seroquel) 25 mg PO HS [facility] PRN Reason: Protocol Stop: 10/23/17 20:59 Last Admin: 08/28/17 21:12 Dose: 25 mg Simvastatin (Zocor) 10 mg GT HS [facility] PRN Reason: Protocol Stop: 10/22/17 20:59 Last Admin: 08/28/17 21:12 Dose: 10 mg General: No acute distress HEENT: Atraumatic Neck: Supple Assessment/Plan - Plan Plan: to be dc today as per psych Nutritional Asmnt/Malnutr-PDOC - Dietary Evaluation Malnutrition Findings (Please click <Entered> for more info): Nutritional Asmnt/Malnutrition Start: 08/28/17 14: 40 Text: Status: Complete Freq: Document 08/28/17 14:40 AUDREYG (Rec: 08/28/17 14:53 [email or web address] [email or web address]) Nutritional Asmnt/Malnutrition Patient General Information Nutritional Screening Moderate Risk Diagnosis dementia with agitation Pertinent Medical Hx/Surgical Hx HTN, DM, seizure, arthritis, PVD, dysphagia anemia, hyperlipidemia, encephalopathy Subjective Information Pt seen lying in bed during the time of visit, Portuguese speaking. Spoke with RN, pt eats well, no question or concern with current diet. Pt was refusing accucheck today. Current Diet Order/ Nutrition Support Pureed [facility] Pertinent Medications colace, novolog, levemir, glucophage, seroquel Pertinent Labs 08/23 na 140, K 4.3, Cl 108, BUN 14, Cr 0.6, Glucose 161, Ca 9.6, AST 9, ALT 12, Alb 3.7 POC 101-231 in last 2 days (, 08/26) Nutritional Hx/Data Height 1.68 m Height (Calculated Centimeters) 167.6 Current Weight (lbs) 72.575 kg Weight (Calculated Kilograms) 72.6 Weight (Calculated Grams) 57483.8 [place] Body Weight 130 % [place] Body Weight 123 Body Mass Index (BMI) 25.8 Weight Status Overweight GI Symptoms GI Symptoms None Last BM 08/28 Difficult in: None Skin Integrity/Comment: intact Estimated Nutritional Goals BEE in Kcals: Using Current wt Calories/Kcals/Kg 25-27 Kcals Calculated Protein: Using Current wt Protein g/k Protein Calculated 73 Fluid: ml Nutritional Problem 1. Problem Problem altered nutrition realted lab values Etiology hx of DM Signs/Symptoms: glucose 161, POC 101-231 Malnutrition Alert Protein-Calorie Malnutrition N/A Is there a minimum of two criteria No selected? Query Text:Check all the applicable criteria. A minimum of two criteria are recommended for diagnosis of either severe or non-severe malnutrition. Intervention/Recommendation Comments 1. Continue with current diet as ordered. 2. Monitor PO intake, wt, labs and skin integrity 3. F/U as low risk in 7 days, 1/2 Expected Outcomes/Goals Expected Outcomes/Goals 1. PO intake to meet at least 75% of nutritional needs. 2. Wt stability, skin to remain intact, labs to improve
== END 2017-08-29 16:45 | disposition home or self-care (01) | DRG 885 ==
LOC: ER 15:46 → GERO 17:16
PROVIDERS: ADMIT Psychiatry & Neurology Psychiatry; ATTEND Psychiatry & Neurology Psychiatry
DX: F29 Unspecified psychosis not due to a substance or known physiological condition (principal); E11.51 Type 2 diabetes mellitus with diabetic peripheral angiopathy without gangrene; F03.91 Unspecified dementia, unspecified severity, with behavioral disturbance; R13.10 Dysphagia, unspecified; Z93.1 Gastrostomy status; D64.9 Anemia, unspecified; E78.5 Hyperlipidemia, unspecified; G40.909 Epilepsy, unspecified, not intractable, without status epilepticus; I10 Essential (primary) hypertension; M19.90 Unspecified osteoarthritis, unspecified site; Z88.0 Allergy status to penicillin; Z88.1 Allergy status to other antibiotic agents; Z79.4 Long term (current) use of insulin
CPT/HCPCS: 36415-UA; 80053-TC; 80061-TC; 81001-TC; 82948-90; 84443-TC; 85025-TC; 86592-TC; 93005; J1815; J2060; Z7610